=== PATIENT | female | born 1990 | race Two or more races ===

== ENCOUNTER 2023-05-16 02:35 | Emergency (ER) | payer MEDICAID ==
[~2023-05-16] VITALS: Ht 157.5 cm; Wt 183.0 kg
[2023-05-16 03:06] VITALS: O2SAT 96
[2023-05-16 08:49] VITALS: BP 119/70; PULSE 94; RESP 18; TEMP 98.8
== END 2023-05-16 09:36 | disposition home or self-care (01) ==
LOC: ER 03:12
DX: O99.512 Diseases of the respiratory system complicating pregnancy, second trimester (principal); Z3A.21 21 weeks gestation of pregnancy
CPT/HCPCS: 99281

== ENCOUNTER 2023-09-10 18:02 | Emergency (ER) | payer MEDICAID ==
[~2023-09-10] VITALS: Ht 157.5 cm; Wt 77.0 kg
[2023-09-10 18:06] VITALS: O2SAT 100
[2023-09-10] MEDS: ONDANSETRON HCL 4MG/2ML INJ IV STA (19:03)
[2023-09-10] MEDS: FAMOTIDINE 20MG/2ML VIAL IV STA (19:05)
[2023-09-10 19:07] LABS: BASOPHILS % 0.8 % (0.0-2.0); EOSINOPHILS % 1.4 % (0.0-5.0); HEMATOCRIT. 36.8 % (36.0-48.0); HEMOGLOBIN. 12.4 g/dL (12.0-16.0); LYMPHOCYTES % 28.3 % (20.0-50.0); MEAN CORPUSCULAR HEMOGLOBIN 31.8 pg (28.0-32.0); MEAN CORPUSCULAR HGB CONC 33.6 g/dL (31.0-37.0); MEAN CORPUSCULAR VOLUME 94.5 fL (81.0-99.0); MEAN PLATELET VOLUME 7.5 fl (7.4-10.4); MONOCYTES % 6.1 % (2.0-8.0); NEUTROPHILS % 63.4 % (40.0-76.0); PLATELET 342 x1000/uL (130-400); RED CELL DISTRIBUTION WIDTH 12.4 % (11.6-14.6); WHITE BLOOD COUNT 8.3 x1000/uL (4.5-11.0)
[2023-09-10] MEDS: SODIUM CHLORIDE 0.9% 1,000 ML IV ONE (19:07)
[2023-09-10] MEDS: KETOROLAC 30MG/ML VIAL IV STA (19:08)
[2023-09-10 19:11] LABS: CHLORIDE 109 mEq/L (98-107); POTASSIUM 3.7 mEq/L (3.5-5.1); SODIUM 137 mEq/L (136-145)
[2023-09-10 19:12] LABS: CALCIUM 9.1 mg/dL (8.7-10.4); CARBON DIOXIDE 25 mEq/L (21-32)
[2023-09-10 19:17] LABS: CREATININE 0.7 mg/dL (0.6-1.0); GLUCOSE 94 mg/dL (70-105); UREA NITROGEN BLOOD 12 mg/dL (9-23)
[2023-09-10 19:18] LABS: ETHANOL BLOOD < 10 mg/dL (<10); INR 0.9; PROTHROMBIN TIME 10.3 sec (9.6-11.0)
[2023-09-10 19:19] LABS: ALANINE AMINOTRANSFERASE 26 IU/L (10-49); ALBUMIN 4.6 g/dL (3.2-4.8); ASPARTATE AMINOTRANSFERASE 24 IU/L (<34); BILIRUBIN TOTAL 0.3 mg/dL (0.1-1.0); PROTEIN TOTAL 7.9 g/dL (6.0-8.3)
[2023-09-10 19:28] LABS: HCG SCREEN NEGATIVE
[2023-09-10 20:33] LABS: CLARITY URINE CLEAR (CLEAR); COLOR URINE ORANGE (YELLOW); GLUCOSE URINE NEGATIVE (NEGATIVE); KETONES URINE NEGATIVE (NEGATIVE); LEUKOCYTE ESTERASE URINE TRACE (NEGATIVE); NITRITE URINE NEGATIVE (NEGATIVE); OCCULT BLOOD URINE 3+ (NEGATIVE); PROTEIN URINE 1+ (NEGATIVE); SPECIFIC GRAVITY URINE 1.005 (1.005-1.030)
[2023-09-10 20:46] LABS: BACTERIA URINE 1+; RBC URINE 15-25 /hpf (0-2); SQUAMOUS EPITHELIAL CELL URINE FEW /lpf (RARE/1+)
[2023-09-10 20:47] LABS: WBC URINE 0-2 /hpf (0-2)
[2023-09-10 20:49] LABS: *AMPHETAMINES SCREEN URINE NEGATIVE (NEGATIVE); *BARBITURATES SCREEN URINE NEGATIVE (NEGATIVE); *BENZODIAZEPINES SCREEN URINE NEGATIVE (NEGATIVE); *COCAINE SCREEN URINE NEGATIVE (NEGATIVE); CANNABINOID URINE SCREEN NEGATIVE (NEGATIVE); ECSTASY MDMA SCREEN URINE NEGATIVE (NEGATIVE); METHADONE URINE SCREEN Neg (NEGATIVE); OPIATES URINE SCREEN NEGATIVE (NEGATIVE); PHENCYCLIDINE URINE SCREEN NEGATIVE (NEGATIVE)
[2023-09-10] MEDS ORDERED: FAMO-135 MT (21:09)
[2023-09-10 21:15] VITALS: BP 118/67; PULSE 63; RESP 14; TEMP 98.1
== END 2023-09-10 21:17 | disposition home or self-care (01) ==
LOC: ER 18:02
DX: R10.9 Unspecified abdominal pain (principal)
CPT/HCPCS: 80053; 80305; 81003; 81025; 80320; 84703; 83690; 85025; 85610; 36415; 74176; 76705; 96361; 96374; 96375; 99285; J3490; J2405; J7030; Z7610 ×3; G0480

== ENCOUNTER 2023-10-09 15:40 | Emergency (ER) | payer MEDICAID ==
[~2023-10-09] VITALS: Ht 157.5 cm; Wt 76.0 kg
[~2023-10-09 15:40] MED LIST: FAMO-135 MT
[2023-10-09 15:57] VITALS: BP 117/67; PULSE 77; RESP 16; TEMP 98.1; O2SAT 98
== END 2023-10-09 20:32 | disposition left against medical advice (07) ==
LOC: ER 15:40
DX: R10.84 Generalized abdominal pain (principal); Z88.8 Allergy status to other drugs, medicaments and biological substances
CPT/HCPCS: 99283

== ENCOUNTER 2024-10-09 22:30 | Emergency (ER) | payer MEDICAID ==
[~2024-10-09] VITALS: Ht 157.5 cm; Wt 72.5 kg
[2024-10-09 22:33] VITALS: O2SAT 99
[2024-10-09 22:54] VITALS: BP 120/71; PULSE 76; RESP 18; TEMP 36.8; O2SAT 98
[2024-10-09 23:33] VITALS: TEMP 98.3
[2024-10-09] MEDS: ACETAMINOPHEN 500MG TABLET PO ONE (23:33)
[2024-10-10 00:28] LABS: INFLUENZA TYPE A Presumptive Negative (Pres. Neg.); INFLUENZA TYPE B Presumptive Negative (Pres. Neg.)
== END 2024-10-10 01:45 | disposition home or self-care (01) ==
LOC: ER 22:30
DX: J06.9 Acute upper respiratory infection, unspecified (principal); Z88.0 Allergy status to penicillin; Z79.899 Other long term (current) drug therapy
CPT/HCPCS: 87804; 99283